=== PATIENT | female | born 2000 | race Caucasian/White ===

== ENCOUNTER 2020-09-18 07:26 | Day surgery (SDC) | payer OTHER ==
[~2020-09-18] VITALS: Ht 172.7 cm; Wt 59.4 kg
[~2020-09-18 07:26] MED LIST: MELA2.5C4 PO; NS 1,000 ML IV ONE; VITMTA PO; [UNRECOGNIZED DRUG - REMARK] PO; acid reflux med PO
[2020-09-18] MEDS ORDERED: LIDOCAINE 2% 100MG/5ML SDV (FOR ANES.) As Ordered ONE (07:43)
[2020-09-18] MEDS ORDERED: propofoL 200 MG/20 ML VIAL As Ordered ONE ×2 (07:43→08:20)
--- NOTE | 2020-09-18 08:41 | ROOR ---
Patient Name: Le Yen Procedure Date: 09/18/2020 8:00 AM Date of : 2000 Age: 20 Room: [facility] Gender: Female Note Status: Finalized Procedure: Colonoscopy Indications: Abdominal pain in the left lower quadrant, Clinically significant diarrhea of unexplained origin, Hematochezia Providers: Ottoniel BARROW MD Referring MD: CONNIE EMERSON MD Requesting Provider: Medicines: Monitored Anesthesia Care Complications: No immediate complications. Procedure: Pre-Anesthesia Assessment: - The heart rate, respiratory rate, oxygen saturations, blood pressure, adequacy of pulmonary ventilation, and response to care were monitored throughout the procedure. The Colonoscope was introduced through the anus and advanced to 10 cm into the ileum. The colonoscopy was performed without difficulty. The patient tolerated the procedure well. The quality of the bowel preparation was good. Findings: The perianal and digital rectal examinations were normal. A diffuse area of mildly erythematous mucosa was found in the rectum. Localized mild inflammation characterized by erythema and granularity was found in the cecum. Biopsies were taken with a cold forceps for histology. The exam was otherwise normal throughout the examined colon. The terminal ileum appeared normal. Biopsies were taken with a cold forceps for histology. Impression: - Proctitis/erythematous mucosa in the rectum from 0 to 12 cm. - Localized mild inflammation was found in the cecum secondary to colitis. Biopsied. - The examined portion of the ileum was normal. Biopsied. 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 Biopsies done to r/o other) Recommendation: - Use Lialda 1.2 gm at 4 tabs PO daily. - Use Canasa 1000 mg suppository 1 per rectum QHS for 2 months. - Return to my office in 1 month. - (the script was sent to your pharmacy on file) Procedure Code(s): --- Professional --- 78517, Colonoscopy, flexible; with biopsy, single or multiple Diagnosis Code(s): --- Professional --- K92.1, Melena (includes Hematochezia) R19.7, Diarrhea, unspecified R10.32, Left lower quadrant pain K52.9, Noninfective gastroenteritis and colitis, unspecified K62.89, Other specified diseases of anus and rectum CPT copyright 2019 [employer]. All rights reserved. The codes documented in this report are preliminary and upon medical record coder review may be revised to meet current compliance requirements. Ottoniel Barrow MD Ottoniel BARROW MD 09/18/2020 8:42:35 AM Electronically signed by Ottoniel BARROW MD Number of Addenda: 0 Note Initiated On: 09/18/2020 8:00 AM Estimated Blood Loss: Estimated blood loss: none.
[2020-09-18 09:05] VITALS: BP 112/68
== END 2020-09-18 09:12 | disposition home or self-care (01) ==
LOC: M OPP 07:26
PROVIDERS: ATTEND Internal Medicine Gastroenterology
DX: D12.0 Benign neoplasm of cecum (principal); D12.2 Benign neoplasm of ascending colon; D12.3 Benign neoplasm of transverse colon; D12.4 Benign neoplasm of descending colon; D12.5 Benign neoplasm of sigmoid colon; K63.89 Other specified diseases of intestine; K52.9 Noninfective gastroenteritis and colitis, unspecified; R10.32 Left lower quadrant pain; K92.1 Melena; Z80.0 Family history of malignant neoplasm of digestive organs

== ENCOUNTER → 2020-09-22 | Outpatient (CLI) | payer OTHER ==
[~2020-09-22] MED LIST changes: +E-Z-PAQUE 96% w/w SUSP 176GM BTL As Ordered ONE; -NS 1,000 ML IV ONE
--- NOTE | 2020-09-22 19:17 | REP ---
INDICATION: HEMORRHAGE OF ANUS/RECTUM. COMPARISON: None. TECHNIQUE: The procedure was performed under the direct supervision of Dr. Cote. The images were reviewed with Dr. Cote. Liquid barium was administered and the barium column was followed through the small bowel to the level of the terminal ileum. 1.1 minutes of fluoro time was utilized for this procedure. FINDINGS: The cardiovascular tech film shows no organomegaly or pathological masses. The intestinal gas pattern is nonspecific. Small bowel transit time is rapid as there is contrast seen in the ascending colon on the 0 minute film. During fluoroscopy gentle palpation shows all loops are freely movable and pliable. There are no fixed or angulated loops. The small bowel mucosal pattern is normal in course and caliber. There is no transition to suggest a partial small bowel obstruction. Spot filming of the terminal ileum shows it to be unremarkable. IMPRESSION: Small bowel transit time is rapid as there is contrast seen in the ascending colon at the 0 minutes film. Otherwise, examination within normal limits. <Electronically signed by Jose Francisco Bustillo > 09/22/20 1553 <Electronically signed by Suhail Cote > 09/22/20 1914
== END ==
LOC: M RAD 09:13
PROVIDERS: ATTEND Internal Medicine Gastroenterology
DX: K62.5 Hemorrhage of anus and rectum (principal)

== ENCOUNTER → 2022-10-21 | Outpatient (REF) | payer OTHER ==
[~2022-10-21] MED LIST changes: -E-Z-PAQUE 96% w/w SUSP 176GM BTL As Ordered ONE
== END ==
LOC: M LAB REF 20:46
PROVIDERS: ATTEND Physician Assistant
DX: J06.9 Acute upper respiratory infection, unspecified (principal)

== ENCOUNTER 2022-11-17 09:26 | Day surgery (SDC) | payer OTHER ==
[~2022-11-17] VITALS: Ht 172.7 cm; Wt 78.0 kg
[~2022-11-17 09:26] MED LIST changes: +ACETAMINOPHEN 1000MG 100ML IV BAG As Ordered ONE; +ACETAMINOPHEN 500 MG TAB PO ONE; +APRI0.37 PO; +FLUO40CA PO; +GABAPENTIN 300 MG CAP PO ONE; +HYDROmorphone HCL 2MG/ML 1ML VIAL As Ordered ONE; +KETOROLAC 60MG 2ML VIAL As Ordered ONE; +LIDOCAINE 2% 100MG/5ML SDV (FOR ANES.) As Ordered ONE; +MELA3TAB30 PO; +MIDAZOLAM INJ 2MG/2ML VIAL As Ordered ONE; +ONDANSETRON 4MG 2ML VIAL As Ordered ONE; +ROCURONIUM BROMIDE 50MG/5ML VIAL As Ordered ONE; +TEST200I14 IM; +ceFAZolin SOD 2 GM in IV 1 EA IV ONE; +fentaNYL 100 MCG/2 ML INJECTION As Ordered ONE; +propofoL 200 MG/20 ML VIAL As Ordered ONE
[2022-11-17] MEDS ORDERED: LR 1,000 ML IV SCH ×2 (09:35→14:35)
[2022-11-17 09:58] LABS: HEMATOCRIT 43.4 % (36.0-47.0); HEMOGLOBIN 13.6 g/dl (12.0-15.5); MEAN CORPUSCULAR HEMOGLOBIN 25.2 pg (27.0-33.0); MEAN CORPUSCULAR HGB CONC 31.3 g/dl (32.0-36.5); MEAN CORPUSCULAR VOLUME 80.5 fl (80.0-96.0); PLATELET COUNT, AUTOMATED 229 10^3/uL (150-450); RED BLOOD COUNT 5.39 10^6/uL (4.00-5.40)
[2022-11-17 10:31] LABS: ALBUMIN 4.1 G/DL (3.2-5.2); ALKALINE PHOSPHATASE 89 U/L (46-116); ALT/SGPT 18 U/L (7.0-40); AST/SGOT 17 U/L (<34); BILIRUBIN,TOTAL 0.6 MG/DL (0.3-1.2); BLOOD UREA NITROGEN 12 MG/DL (9-23); CALCIUM LEVEL 9.1 MG/DL (8.5-10.1); CARBON DIOXIDE LEVEL 26 MMOL/L (20-31); CHLORIDE LEVEL 105 MMOL/L (98-107); CREATININE FOR GFR 0.74 MG/DL (0.55-1.30); GLOMERULAR FILTRATION RATE > 60.0 (>60); GLUCOSE, FASTING 91 MG/DL (60-100); POTASSIUM SERUM 3.9 MMOL/L (3.5-5.1); SODIUM LEVEL 138 MMOL/L (136-145); TOTAL PROTEIN 6.8 G/DL (5.7-8.2)
[2022-11-17 10:48] LABS: HCG, SERUM QUALITATIVE NEGATIVE (NEGATIVE)
[2022-11-17] MEDS ORDERED: BUPIVACAINE HCL 0.25% 30ML VIAL As Ordered ONE (11:05)
[2022-11-17] MEDS ORDERED: GLYCOPYRROLATE INJ 0.2 MG/ML 2 ML VIAL As Ordered ONE (12:09)
[2022-11-17] MEDS ORDERED: SUGAMMADEX SODIUM 500 MG/5 ML VIAL (BRIDION) As Ordered ONE (12:09)
[2022-11-17] MEDS ORDERED: ePHEDrine SULFATE 25 MG/5 ML(5MG/ML) SYRINGE As Ordered ONE (12:09)
[2022-11-17] MEDS ORDERED: fentaNYL 100 MCG/2 ML INJECTION IV PRN (14:35)
[2022-11-17] MEDS ORDERED: ONDANSETRON 4MG 2ML VIAL IV PRN (14:35)
[2022-11-17] MEDS: HYDROMORPHONE HCL 0.5 MG/ 0.5 ML SYRINGE IV PRN ×2 (15:06→15:16)
[2022-11-17] MEDS: oxyCODONE 5MG TAB PO PRN ×2 (15:06→15:43)
[2022-11-17 16:45] VITALS: BP 140/70
== END 2022-11-17 16:50 | disposition home or self-care (01) ==
LOC: M SDC 09:26
PROVIDERS: ATTEND Obstetrics & Gynecology
DX: F64.9 Gender identity disorder, unspecified (principal); N87.9 Dysplasia of cervix uteri, unspecified; N93.9 Abnormal uterine and vaginal bleeding, unspecified; F41.1 Generalized anxiety disorder; K51.90 Ulcerative colitis, unspecified, without complications; Z90.13 Acquired absence of bilateral breasts and nipples; F43.10 Post-traumatic stress disorder, unspecified; Z81.8 Family history of other mental and behavioral disorders; Z79.899 Other long term (current) drug therapy; Z79.890 Hormone replacement therapy
CPT/HCPCS: 36415; 58552; 80053; 84703; 85027; 86850; 86900; 86901; 88307; J0131; J1100; J1170; J1885; J2250; J2405; J3010; S0020

== ENCOUNTER → 2023-02-02 | Outpatient (CLI) | payer OTHER ==
[~2023-02-02] MED LIST changes: -ACETAMINOPHEN 1000MG 100ML IV BAG As Ordered ONE; -ACETAMINOPHEN 500 MG TAB PO ONE; -GABAPENTIN 300 MG CAP PO ONE; -HYDROmorphone HCL 2MG/ML 1ML VIAL As Ordered ONE; -KETOROLAC 60MG 2ML VIAL As Ordered ONE; -LIDOCAINE 2% 100MG/5ML SDV (FOR ANES.) As Ordered ONE; -MIDAZOLAM INJ 2MG/2ML VIAL As Ordered ONE; -ONDANSETRON 4MG 2ML VIAL As Ordered ONE; -ROCURONIUM BROMIDE 50MG/5ML VIAL As Ordered ONE; -ceFAZolin SOD 2 GM in IV 1 EA IV ONE; -fentaNYL 100 MCG/2 ML INJECTION As Ordered ONE; -propofoL 200 MG/20 ML VIAL As Ordered ONE
== END ==
LOC: M CARPUL 10:37 → EDSEX 11:00
PROVIDERS: ATTEND Internal Medicine Pulmonary Disease
DX: R06.02 Shortness of breath (principal)

== ENCOUNTER → 2023-02-14 | Outpatient (CLI) | payer OTHER ==
[~2023-02-14] MED LIST changes: +METHACHOLINE KIT INH ONE
== END ==
LOC: M CARPUL 11:01
PROVIDERS: ATTEND Internal Medicine Pulmonary Disease
DX: R06.02 Shortness of breath (principal)
CPT/HCPCS: 71046; 94070; J7674